=== PATIENT | male | born 1985 | race Caucasian/White ===

== ENCOUNTER 2017-03-04 22:49 | Emergency (ER) | payer MEDICAID ==
[2017-03-04] MEDS ORDERED: METOCLOPRAMIDE 10 MG/2 ML VIAL IVP ONE (23:02)
[2017-03-04] MEDS ORDERED: NS 1,000 ML IV ONE (23:02)
[2017-03-04] MEDS ORDERED: DEXAMETHASONE 10 MG/ML VIAL IVP ONE (23:02)
[2017-03-04] MEDS ORDERED: KETOROLAC 30 MG/1 ML SDV IVP ONE (23:02)
--- NOTE | 2017-03-04 23:05 | EDPHY ---
H & P Time Seen by Provider: 03/04/17 22:57 HPI/ROS: CHIEF COMPLAINT: Headache HISTORY OF PRESENT ILLNESS: The patient is a 31-year-old homeless man with history of methamphetamine abuse who comes to the emergency department by ambulance complaining of headache. He states that it began about 1 hour ago. It was gradual in onset. He states that he has migraines every so often but this seems to be worse than his typical migraine. He denies any trauma. He denies fever. He has been nauseous but not vomited. No Vision changes. No hearing changes no focal weakness numbness or deficits. He denies any recent alcohol abuse but does state that he had methamphetamine this afternoon. He was given fentanyl and Zofran by EMS. REVIEW OF SYSTEMS: Constitutional: denies: chills, fever, recent illness, recent injury EENTM: denies: blurred vision, double vision, nose congestion Respiratory: denies: cough, shortness of breath Cardiac: denies: chest pain, irregular heart rate, lightheadedness, palpitations Gastrointestinal/Abdominal: denies: abdominal pain, diarrhea, nausea, vomiting, blood streaked stools Genitourinary: denies: dysuria, frequency, hematuria, pain Musculoskeletal: denies: joint pain, muscle pain Skin: denies: lesions, rash, jaundice, bruising Neurological: See HPI denies: numbness, paresthesia, tingling, dizziness, weakness Hematologic/Lymphatic: denies: blood clots, easy bleeding, easy bruising Immunologic/allergic: denies: HIV/AIDS, transplant EXAM: GENERAL: Slightly drowsy, well-nourished and in no acute distress. HEAD: Atraumatic, normocephalic. EYES: Pupils equal round and reactive to light, extraocular movements intact, sclera anicteric, conjunctiva are normal. ENT: TMs normal, nares patent, oropharynx clear without exudates. Moist mucous membranes. NECK: Normal range of motion, supple without lymphadenopathy or JVD. LUNGS: Breath sounds clear to auscultation bilaterally and equal. No wheezes rales or rhonchi. HEART: Regular rate and rhythm without murmurs, rubs or gallops. ABDOMEN: Soft, nontender, normoactive bowel sounds. No guarding, no rebound. No masses appreciated. BACK: No CVA tenderness, no spinal tenderness, step-offs or deformities EXTREMITIES: Normal range of motion, no pitting or edema. No clubbing or cyanosis. NEUROLOGICAL: Cranial nerves II through XII grossly intact. Normal speech, normal gait. 5/5 strength, normal movement in all extremities, normal sensation PSYCH: Normal mood, normal affect. SKIN: Warm, dry, normal turgor, no visible rashes or lesions. Source: Patient Exam Limitations: No limitations - Medical/Surgical History Hx Asthma: No Hx Chronic Respiratory Disease: No Hx Diabetes: No Hx Cardiac Disease: No Hx Renal Disease: No Hx Cirrhosis: No Hx Alcoholism: No Hx HIV/AIDS: No Hx Splenectomy or Spleen Trauma: No Other PMH: ADHD, HEP C - Family History Significant Family History: No pertinent family hx - Social History Smoking Status: Current every day smoker Alcohol Use: Occasionally Drug Use: Other Constitutional: Initial Vital Signs Temperature (C) 36.7 C 03/04/17 23:10 Heart Rate 97 03/04/17 23:10 Respiratory Rate 16 03/04/17 23:10 Blood Pressure 151/91 H 03/04/17 23:10 O2 Sat (%) 94 03/04/17 23:10 O2 Delivery Mode Room Air Allergies/Adverse Reactions: No Known Allergies Allergy (Verified 03/04/17 23:09) Home Medications: Medication Instructions Recorded NK [No Known Home Meds] 03/22/15 Medical Decision Making ED Course/Re-evaluation: 12:00 p[address]. we discussed the CT results. The patient is feeling better. He does not wish to have further testing . He is ready to go home. Normal neuro exam. Differential Diagnosis: Partial list of the Differential diagnosis considered include but were not limited to; migraine, substance abuse, withdrawal, tension headache, right no and although unlikely based on the history and physical exam, I also considered trauma infection,. I discussed these differential diagnoses and the plan with the patient as well as the usual and expected course. The patient understands that the diagnosis is provisional and that in medicine we are not always correct and that further workup is often warranted. Usual and customary warnings were given. All of the patient's questions were answered. The patient was instructed to return to the emergency department should the symptoms at all worsen or return, otherwise to followup with the physician as we discussed. - Data Points Laboratory Results: Laboratory Results 03/04/17 23:40 03/04/17 23:40 Medications Given: Discontinued Medications Dexamethasone (Decadron Injection) 10 mg IVP EDNOW ONE Stop: 03/04/17 23:03 Last Admin: 03/04/17 23:16 Dose: 10 mg Sodium Chloride (Ns) 1,000 mls @ 0 mls/hr IV ONCE ONE; Wide Open PRN Reason: Protocol Stop: 03/04/17 23:03 Last Admin: 03/04/17 23:14 Dose: 1,000 mls Ketorolac Tromethamine (Toradol) 30 mg IVP EDNOW ONE Stop: 03/04/17 23:03 Last Admin: 03/04/17 23:15 Dose: 30 mg Metoclopramide HCl (Reglan Injection) 10 mg IVP EDNOW ONE Stop: 03/04/17 23:03 Last Admin: 03/04/17 23:18 Dose: 10 mg Departure - Departure Disposition: Home, Routine, Self-Care Clinical Impression: Headache Qualifiers: Headache type: unspecified Headache chronicity pattern: acute headache Intractability: not intractable Qualified Code(s): R51 - Headache Condition: Fair Instructions: Acute Headache (ED) Referrals: Patient,NotPresent [Unknown] - As per Instructions [facility],. [Clinic] - As per Instructions
[2017-03-04 23:19] VITALS: O2SAT 94
[2017-03-04 23:48] LABS: % IMMATURE GRANULYOCYTES 0.6 % (0.0-1.1); ABSOLUTE IMMATURE GRANULOCYTES 0.03 10^3/uL (0.00-0.10); ADD DIFF? NO; ADD MORPH? NO; ADD SCAN? NO; ATYPICAL LYMPHOCYTE FLAG 0 (0-99); FRAGMENT RBC FLAG 0 (0-99); HEMATOCRIT 44.8 % (40.0-51.0); HEMOGLOBIN 15.1 g/dL (13.7-17.5); LEFT SHIFT FLG 50 (0-99); LIPEMIA HEMOLYSIS FLAG 80 (0-99); MEAN CELL HEMOGLOBIN 31.3 pg (27.9-34.1); MEAN CELL HEMOGLOBIN CONCENTR. 33.7 g/dL (32.4-36.7); MEAN CELL VOLUME 92.9 fL (81.5-99.8); MEAN PLATELET VOLUME 11.4 fL (8.7-11.7); PLATELET CLUMPS FLAG 10 (0-99); PLATELET COUNT 147 10^3/uL (150-400); RED BLOOD CELL COUNT 4.82 10^6/uL (4.40-6.38); RED CELL DISTRIBUTION WIDTH 12.2 % (11.5-15.2)
[2017-03-05 00:06] LABS: ANION GAP 7 mEq/L (8-16); CALCIUM 8.3 mg/dL (8.5-10.4); CARBON DIOXIDE 23 mEq/l (22-31); CHLORIDE 107 mEq/L (97-110); CREATININE 0.6 mg/dL (0.7-1.3); GLOMERULAR FILTRATION RATE > 60; GLUCOSE 99 mg/dL (70-100); POTASSIUM 3.4 mEq/L (3.5-5.2); SODIUM 137 mEq/L (134-144)
[2017-03-05 00:17] VITALS: BP 128/85; PULSE 105; RESP 20; TEMP 98.4
== END 2017-03-05 00:17 | disposition home or self-care (01) ==
LOC: EDUNIT#
DX: R51 Headache (principal); E86.9 Volume depletion, unspecified; F17.200 Nicotine dependence, unspecified, uncomplicated
CPT/HCPCS: 96374; J1100; J1885; J2765

== ENCOUNTER 2017-06-21 17:03 | Emergency (ER) | payer MEDICAID ==
--- NOTE | 2017-06-21 17:33 | EDPHY ---
H & P - Medical/Surgical History Hx Asthma: No Hx Chronic Respiratory Disease: No Hx Diabetes: No Hx Cardiac Disease: No Hx Renal Disease: No Hx Cirrhosis: No Hx Alcoholism: No Hx HIV/AIDS: No Hx Splenectomy or Spleen Trauma: No Other PMH: ADHD, HEP C - Social History Smoking Status: Current every day smoker HPI/ROS: Chief complaint: Suicidal ideation, on mental health hold History of present illness: This is a 31-year-old male brought to the emergency department by police to have placed him on a mental health hold. Patient reports multiple stressors in life, he is very frustrated that he cannot deal with. He has had thoughts killing himself. He attempted to walk into traffic this evening but called 911 1st. Does have a history of underlying psychiatric disease. He has been in the hospital multiple times but is been a number of years since his last visit. States he normally takes psychiatric medications including Wellbutrin and Seroquel but has not been taking them recently is he is abusing methamphetamine. He denies homicidal ideation. He denies illness or injury. Review of systems: A 10 point review of systems was obtained and other than described above was negative (Filiberto Pearson) - Physical Exam Exam: General Appearance: Alert, nontoxic. Eyes: Pupils equal and round no pallor or injection. ENT, Mouth: Mucous membranes moist. Respiratory: There are no retractions, lungs are clear to auscultation. Cardiovascular: Regular rate and rhythm. Gastrointestinal: Abdomen is soft and non tender, no masses, bowel sounds normal. Neurological: Alert and oriented x4. Cranial nerves 2-12 grossly intact. Strength and sensation intact and symmetrical. Skin: Warm and dry, no rashes. Musculoskeletal: Neck is supple non tender. Extremities are symmetrical, full range of motion. Psychiatric: Patient converses easily. Appears mildly frustrated. (Filiberto eParson) Constitutional: Initial Vital Signs Temperature (C) 36.9 C 06/21/17 17:05 Heart Rate 88 06/21/17 17:05 Respiratory Rate 18 06/21/17 17:05 Blood Pressure 152/111 H 06/21/17 17:05 O2 Sat (%) 99 06/21/17 17:05 O2 Delivery Mode Room Air Allergies/Adverse Reactions: No Known Allergies Allergy (Verified 03/04/17 23:09) Home Medications: Medication Instructions Recorded NK [No Known Home Meds] 03/22/15 Medical Decision Making ED Course/Re-evaluation: The patient was evaluated and managed by the physician's medical assistant supervisor. My cosignature indicates that I reviewed the chart and I agree with the findings and plan of care as documented. I am the secondary supervising physician. ( Gavi Rueda) Patient seen under the supervision of my secondary supervising physician Dr. Gavi Rueda. Presents to the emergency department on a mental health hold for suicidal ideation. He is medically evaluated and cleared for psychiatric evaluation. This is pending at time of dictation. Care of patient turned over to my attending physician Dr. Susy Guerra at end of shift. (Filiberto Pearson) 10:50 p.m.- Patient was evaluated by mental health worker. He has a history of bipolar disorder with psychosis and has been off of his meds for several months now. He is not able to contract for safety. They will begin to look for and ATU for him. 6:00 a.m.- The patient has remained stable throughout my shift, mostly sleeping. He is still awaiting placement. The case will be signed out at 7:00 a.m. to the oncoming doctor, Dr. Patel. (Susy Guerra) Other Provider: [id number]: Patient has been accepted for inpatient treatment at the [facility]. Transport arranged. (Linda Patel) - Data Points Laboratory Results: Laboratory Results 06/21/17 18:30 06/21/17 18:30 Departure - Departure Disposition: Other Psych, Not [place] Clinical Impression: Suicidal ideation Condition: Good Referrals: NONE *PRIMARY CARE P,. [Primary Care Provider] - As per Instructions
[2017-06-21 18:39] LABS: PLATELET COUNT 268 10^3/uL (150-400)
[2017-06-22 12:06] VITALS: BP 135/92; PULSE 99; RESP 18; TEMP 98.4; O2SAT 98
== END 2017-06-22 12:06 ==
DX: R45.851 Suicidal ideations (principal); F17.200 Nicotine dependence, unspecified, uncomplicated
CPT/HCPCS: 80305; G0480

== ENCOUNTER 2017-07-04 01:50 | Emergency (ER) | payer MEDICAID ==
--- NOTE | 2017-07-04 01:57 | EDPHY ---
H & P HPI/ROS: HPI CHIEF COMPLAINT: Nausea and vomiting HISTORY OF PRESENT ILLNESS: This patient very pleasant 31-year-old male, he is homeless, history of mental illness including bipolar disorder, additionally history of polysubstance abuse, states he did methamphetamine approximately 12- 24 hours ago. He presents emergency room by mouth nausea vomiting. Additionally reports that there is something his abdomen. He states located epigastric region. Nontender palpation. He thinks there something stuck care. He denies ingestion of foreign body. Denies significant pain. Past Medical History: Bipolar disorder, schizophrenia, polysubstance abuse including methamphetamine Past Surgical History: No recent surgery Social History: Recent methamphetamine abuse Family History: Noncontributory ROS REVIEW OF SYSTEMS: A comprehensive 10 point review of systems is otherwise negative aside from elements mentioned in the history of present illness. Exam Constitutional appears well nontoxic, appears dry, triage nursing summary reviewed, vital signs reviewed, awake/alert. Eyes normal conjunctivae and sclera, EOMI, PERRLA. HENT normal inspection, atraumatic, dry mucus membranes, no epistaxis, neck supple/ no meningismus, no raccoon eyes. Respiratory clear to auscultation bilaterally, normal breath sounds, no respiratory distress, no wheezing. Cardiovascular rate normal, regular rhythm, no murmur, no edema, distal pulses normal. Gastrointestinal soft, non-tender, no rebound, no guarding, normal bowel sounds, no distension, no pulsatile mass. Genitourinary no CVA tenderness. Musculoskeletal no midline vertebral tenderness, full range of motion, no calf swelling, no tenderness of extremities, no meningismus, good pulses, neurovascularly intact. Skin pink, warm, & dry, no rash, skin atraumatic. Neurologic awake, alert and oriented x 3, AAOx3, moves all 4 extremities equally, motor intact, sensory intact, CN II-XII intact, normal cerebellar, normal vision, normal speech. Psychiatric normal mood/affect. Heme/Lymph/Immune no lymphadenopathy. Differential Diagnosis: Includes but is not limited to in a particular order acute nausea vomiting, acute dehydration, electrolyte disturbance, foreign body ingestion, esophagitis, peptic ulcer disease, duodenitis, bowel obstruction Medical Decision Making: Plan for this patient IV established with IV fluid bolus, 1 L normal saline, IV Zofran for nausea, check chest x-ray, KUB, check electrolytes, CBC and re-evaluate. Re-evaluation: ED x-ray two view; negative for foreign body. The x-ray KUB: Negative foreign body. 0253: I did re-evaluate this patient this time is resting comfortably his abdomen remained soft nontender. There is no guarding or peritoneal signs. His x-ray does not show foreign body. His blood work has been reviewed. He does have a mild leukocytosis of 18,000 is H/H is concentrated consistent with acute dehydration. Patient received 4 mg IV Zofran 1 L normal saline is feeling much better. He has not any vomiting in fact he p.o. challenge well. I have ordered him a 2nd L fluid for hydration he does appear dehydrated on exam. After 2nd L is done I will allow her to be discharged from the emergency room we discussed return precautions. Abdomen is soft nontender specifically is no right lower quadrant pain or significant epigastric pain. Additionally recommend he stays well hydrated refrain from doing drugs. Additionally he understands return emergency room if he has worsening abdominal pain fever vomiting. Source: Patient - Medical/Surgical History Hx Asthma: No Hx Chronic Respiratory Disease: No Hx Diabetes: No Hx Cardiac Disease: No Hx Renal Disease: No Hx Cirrhosis: No Hx Alcoholism: No Hx HIV/AIDS: No Hx Splenectomy or Spleen Trauma: No Other PMH: ADHD, HEP C - Social History Smoking Status: Current every day smoker Constitutional: Initial Vital Signs Temperature (C) 36.7 C 07/04/17 01:55 Heart Rate 82 07/04/17 01:55 Respiratory Rate 16 07/04/17 01:55 Blood Pressure 130/86 H 07/04/17 01:55 O2 Sat (%) 99 07/04/17 01:55 O2 Delivery Mode Room Air Allergies/Adverse Reactions: No Known Allergies Allergy (Verified 03/04/17 23:09) Home Medications: Medication Instructions Recorded Effexor 07/04/17 GABAPENTIN 07/04/17 Seroquel 07/04/17 Medical Decision Making - Data Points Laboratory Results: Laboratory Results 07/04/17 01:58 07/04/17 01:58 07/04/17 07/04/17 01:58 01:58 WBC 18.00 10^3/uL H 10^3/uL (3.80-9.50) RBC 6.04 10^6/uL 10^6/uL (4.40-6.38) Hgb 18.5 g/dL H g/dL (13.7-17.5) Hct 53.1 % H % (40.0-51.0) MCV 87.9 fL fL (81.5-99.8) MCH 30.6 pg pg (27.9-34.1) MCHC 34.8 g/dL g/dL (32.4-36.7) RDW 12.5 % % (11.5-15.2) Plt Count 229 10^3/uL 10^3/uL (150-400) MPV 12.3 fL H fL (8.7-11.7) Neut % (Auto) 91.6 % H % (39.3-74.2) Lymph % (Auto) 3.8 % L % (15.0-45.0) [place] % (Auto) 3.6 % L % (4.5-13.0) Eos % (Auto) 0.3 % L % (0.6-7.6) Baso % (Auto) 0.3 % % (0.3-1.7) Nucleat RBC Rel Count 0.0 % % (0.0-0.2) Absolute Neuts (auto) 16.48 10^3/uL H 10^3/uL (1.70-6.50) Absolute Lymphs (auto) 0.69 10^3/uL L 10^3/uL (1.00-3.00) Absolute Monos (auto) 0.64 10^3/uL 10^3/uL (0.30-0.80) Absolute Eos (auto) 0.05 10^3/uL 10^3/uL (0.03-0.40) Absolute Basos (auto) 0.06 10^3/uL 10^3/uL (0.02-0.10) Absolute Nucleated RBC 0.00 10^3/uL 10^3/uL (0-0.01) Immature Gran % 0.4 % % (0.0-1.1) Immature Gran # 0.08 10^3/uL 10^3/uL (0.00-0.10) Sodium 146 mEq/L H mEq/L (134-144) Potassium 4.4 mEq/L mEq/L (3.5-5.2) Chloride 103 mEq/L mEq/L (97-110) Carbon Dioxide 25 mEq/l mEq/l (22-31) Anion Gap 18 mEq/L H mEq/L (8-16) BUN 23 mg/dL mg/dL (7-23) Creatinine 0.8 mg/dL mg/dL (0.7-1.3) Estimated GFR > 60 Glucose 125 mg/dL H mg/dL (70-100) Calcium 10.0 mg/dL mg/dL (8.5-10.4) Total Bilirubin 1.4 mg/dL mg/dL (0.1-1.4) Conjugated Bilirubin 0.3 mg/dL mg/dL (0.0-0.5) Unconjugated Bilirubin 1.1 mg/dL mg/dL (0.0-1.1) AST 39 IU/L IU/L (17-59) ALT 97 IU/L H IU/L (21-72) Alkaline Phosphatase 88 IU/L IU/L (38-126) Total Protein 8.4 g/dL H g/dL (6.3-8.2) Albumin 4.7 g/dL g/dL (3.5-5.0) Lipase 95 IU/L IU/L (23-300) Medications Given: Discontinued Medications Acetaminophen (Tylenol) 1,000 mg PO EDNOW ONE Stop: 07/04/17 02:03 Last Admin: 07/04/17 02:14 Dose: 1,000 mg Sodium Chloride (Ns) 1,000 mls @ 0 mls/hr IV EDNOW ONE; Wide Open PRN Reason: Protocol Stop: 07/04/17 02:03 Last Admin: 07/04/17 02:14 Dose: 1,000 mls Ondansetron HCl (Zofran) 4 mg IVP EDNOW ONE Stop: 07/04/17 02:03 Last Admin: 07/04/17 02:15 Dose: 4 mg Departure - Departure Disposition: Home, Routine, Self-Care Clinical Impression: Dehydration Nausea and vomiting Qualifiers: Vomiting type: unspecified Vomiting Intractability: non-intractable Qualified Code(s): R11.2 - Nausea with vomiting, unspecified Condition: Good Instructions: Acute Nausea and Vomiting (ED), Dehydration (ED) Additional Instructions: 1. Return emergency room if you have any worsening symptoms includes abdominal pain, fever, vomiting Referrals: NONE *PRIMARY CARE P,. [Primary Care Provider] - As per Instructions
[2017-07-04] MEDS ORDERED: ONDANSETRON 4 MG/2 ML VIAL IVP ONE (02:02)
[2017-07-04] MEDS ORDERED: NS 1,000 ML IV ONE ×2 (02:02→02:58)
[2017-07-04] MEDS ORDERED: ACETAMINOPHEN 500 MG TAB PO ONE (02:02)
[2017-07-04 02:05] VITALS: RESP 16
[2017-07-04 02:06] LABS: PLATELET COUNT 229 10^3/uL (150-400)
[2017-07-04] MEDS ORDERED: IBUPROFEN 800 MG TAB PO ONE (03:47)
[2017-07-04] MEDS ORDERED: PROMETHAZINE HCL 25 MG TAB PO ONE (04:02)
[2017-07-04 04:13] VITALS: BP 131/66; PULSE 94; TEMP 97.9; O2SAT 94
== END 2017-07-04 04:10 | disposition home or self-care (01) ==
LOC: EDUNIT#
DX: E86.0 Dehydration (principal); E86.9 Volume depletion, unspecified; F17.200 Nicotine dependence, unspecified, uncomplicated
CPT/HCPCS: 96374; J2405

== ENCOUNTER 2017-10-01 10:57 | Emergency (ER) | payer MEDICAID ==
--- NOTE | 2017-10-01 11:00 | EDPHY ---
Addendum entered and electronically signed by Delphine Myers MD 10/04/17 23:15 : Signed over to Dr. Amezcua at shift change. Dispo pending. Addendum entered and electronically signed by Delphine Myers MD 10/03/17 21:23 : 9pm: signed over to Dr. Rueda at shift change. Dispo pending. Original Note: H & P - Medical/Surgical History Hx Asthma: No Hx Chronic Respiratory Disease: No Hx Diabetes: No Hx Cardiac Disease: No Hx Renal Disease: No Hx Cirrhosis: No Hx Alcoholism: No Hx HIV/AIDS: No Hx Splenectomy or Spleen Trauma: No Other PMH: ADHD, HEP C - Social History Smoking Status: Current every day smoker Time Seen by Provider: 10/01/17 10:57 HPI/ROS: CHIEF COMPLAINT: "I'm tired of this bullshit" HISTORY OF PRESENT ILLNESS: 31-year-old male history of homelessness, bipolar disorder, polysubstance abuse, arrives via police on an M1 hold after he was found wandering in traffic intentionally trying to get hit by vehicle, states that this was a suicide attempt because, "I'm tired of this bullshit". Last used methamphetamine 5 days ago. Has no complaints of pain or discomfort. There was no trauma, he was not hit by any vehicles. No fall. Denies acute alcohol use. Denies hallucination. REVIEW OF SYSTEMS: A ten point review of systems was performed and is negative with the exception of the items mentioned in the HPI PAST MEDICAL & SURGICAL HISTORY: Bipolar disorder SOCIAL HISTORY: Polysubstance abuse, amphetamine abuse PHYSICAL EXAM (Prior to examination, patient consented to physical exam, hands were washed and my usual and customary physical exam procedures followed) 1) GENERAL: poorly kept, foul smelling, dirty, alert and oriented. Appears to be in no acute distress. 2) HEAD: Normocephalic, atraumatic 3) HEENT: Pupils equal, round, reactive to light bilaterally. Sclera anicteric. 4) NECK: Full range of motion, no meningeal signs. 5) LUNGS: Clear auscultation bilaterally, no wheezes, no rhonchi, no retractions. 6) HEART: Regular rate and rhythm, no murmur, no heave, no gallop. 7) ABDOMEN: No guarding, no rebound, no focal tenderness 8) MUSCULOSKELETAL: Moving all extremities, no focal areas of tenderness, no obvious trauma. No peripheral edema or discoloration. 9) BACK: No visual or palpable abnormality. 10) SKIN: No rash, no petechiae. 11) Psychiatric: Patient is oriented X 3, agitated, will intermittently raised his voice at me DIFFERENTIAL DIAGNOSIS: In no particular include but limited to suicidal ideation, homicidal ideation, depression, meredith, psychosis (Leticia Raman Bernadette) Constitutional: Initial Vital Signs Temperature (C) 36.7 C 10/01/17 11:00 Heart Rate 57 L 10/01/17 11:00 Respiratory Rate 16 10/01/17 11:00 Blood Pressure 134/88 H 10/01/17 11:00 O2 Sat (%) 96 10/01/17 11:00 O2 Delivery Mode Room Air Allergies/Adverse Reactions: No Known Allergies Allergy (Verified 03/04/17 23:09) Home Medications: Medication Instructions Recorded Gabapentin [Neurontin 300 MG (*)] 900 mg PO BID 10/04/17 QUEtiapine FUMARATE [Seroquel 300 mg PO HS 10/04/17 300mg (*)] Venlafaxine Xr [Effexor Xr] 150 mg PO DAILY 10/04/17 busPIRone [Buspar (*)] 30 mg PO BID 10/04/17 Medical Decision Making ED Course/Re-evaluation: 10:59 a.m.: Greeted upon arrival. I have reviewed old medical records. Patient is currently on M1 hold. Will obtain diagnostic studies and re- evaluate. Care of patient under supervision of secondary supervising physician Dr Guzman with whom I discussed case. 330 p.m.: Mental health web search evaluator informs me that patient cannot be evaluated until 11:40 p.m. this evening secondary to positive methamphetamine use. Patient re-evaluated at this time. He is sleeping , calm 5:00 p.m.: Care turned over to Dr. Cuong Schafer. (Leticia Raman Bernadette) 1:00 p.m.-I assumed care of this patient. He has a history of depression and mental health is re-evaluating him. 3:15pm-seen by mental health and the plan is to place him in an ATU. (Delphine Myers) 1500: Patient is signed out to me at change of shift by Dr. Ortega. Patient is awaiting evaluation by Psychiatric Services. 2124: The patient is signed out to me at change of shift by Dr. Delphine Myers. Patient is awaiting evaluation placement. (Gavi Rueda) Patient's care was signed over to me by at 7:00 a.m.. Re-evaluation by me at 7:40 a.m.. Patient is receiving Seroquel and BuSpar. Mental health is looking for placement. They are going to come back this morning for re- evaluation Patient has remained stable on my shift. (Lito Chapman) Other Provider: I assumed care of the patient at 5pm. He is awaiting an psychiatric evaluation which has been delayed secondary to his methamphetamine use. The patient will be turned over to Dr. Guerra at 11pm. (Lance Schafer) 2:51 a.m.- The patient was seen by the mental health worker. His urine toxicology was positive for methamphetamine and there is strong suspicion that this is contributing to most of his presentation tonight. He was fairly uncooperative with his history and exam. The mental health worker would like to reassess him in the morning. 5:50 a.m.- The patient has been stable during my shift. He is awaiting reassessment by the mental health team in the morning. At 7:00 a.m., I anticipate the case will be signed out to the oncoming provider Dr. Ortega. (Susy Guerra) Care assumed at 7:00 a.m. With plan for repeat evaluation, history of bipolar disorder and methamphetamine ingestion. 1500: signed out to Moh[facility], plan to admit for SI. (Jeff Ortega) Dr. Myers at 3:00 p.m. (Lito Chapman) 2300 care assumed by me from Dr. Rueda pending placement. 07 patient signed out to Dr. Guzman pending placement. No issues during my care this patient overnight. 10/03/18 2300 care re-assumed by me pending placement. 10/04/18 0700 patient signed out to Dr. Chapman pending placement. No issues during my care this patient overnight. 10/04/18 2300 care re-assumed by me pending placement. 10/05/17 0600 patient has been accepted at [facility] by Dr. Orellana. I have completed the EMTALA ([place] Amezcua) - Data Points Laboratory Results: Laboratory Results 10/01/17 11:40 10/01/17 11:40 10/04/17 19:23 Urine Opiates Screen NEGATIVE ng/mL ng/mL (NEGATIVE) Urine Barbiturates NEGATIVE ng/mL ng/mL (NEGATIVE) Ur Phencyclidine Scrn NEGATIVE ng/mL ng/mL (NEGATIVE) Ur Amphetamines Screen NEGATIVE ng/mL ng/mL (NEGATIVE) U Benzodiazepines Scrn NEGATIVE ng/mL ng/mL (NEGATIVE) Urine Cocaine Screen NEGATIVE ng/mL ng/mL (NEGATIVE) U Marijuana (THC) Screen 76 ng/mL ng/mL (NEGATIVE) Medications Given: Discontinued Medications Buspirone HCl (Buspar) 15 mg PO EDNOW ONE Stop: 10/04/17 08:02 Last Admin: 10/04/17 10:29 Dose: 15 mg Buspirone HCl (Buspar) 30 mg PO EDNOW ONE Stop: 10/04/17 20:11 Last Admin: 10/04/17 20:32 Dose: 30 mg Gabapentin (Neurontin) 900 mg PO EDNOW ONE Stop: 10/01/17 22:52 Last Admin: 10/01/17 23:07 Dose: 900 mg Gabapentin (Neurontin) 900 mg PO EDNOW ONE Stop: 10/03/17 19:48 Last Admin: 10/03/17 20:17 Dose: 900 mg Gabapentin (Neurontin) 900 mg PO EDNOW ONE Stop: 10/04/17 10:31 Last Admin: 10/04/17 11:21 Dose: 900 mg Gabapentin (Neurontin) 900 mg PO EDNOW ONE Stop: 10/04/17 20:13 Last Admin: 10/04/17 20:31 Dose: 900 mg Quetiapine Fumarate (Seroquel) 200 mg PO EDNOW ONE Stop: 10/01/17 22:52 Last Admin: 10/01/17 23:08 Dose: 200 mg Quetiapine Fumarate (Seroquel) 100 mg PO EDNOW ONE Stop: 10/03/17 20:01 Last Admin: 10/03/17 20:17 Dose: 100 mg Quetiapine Fumarate (Seroquel) 200 mg PO EDNOW ONE Stop: 10/03/17 20:19 Last Admin: 10/03/17 20:19 Dose: 200 mg Quetiapine Fumarate (Seroquel) 300 mg PO ONCE ONE Stop: 10/04/17 08:02 Last Admin: 10/04/17 10:29 Dose: 300 mg Quetiapine Fumarate (Seroquel) 300 mg PO ONCE ONE Stop: 10/04/17 20:08 Last Admin: 10/04/17 20:32 Dose: 300 mg Departure - Departure Disposition: Other Psych, Not [facility] Clinical Impression: Methamphetamine abuse, Bipolar disorder, Suicidal ideation Condition: Good Instructions: Bipolar Disorder (ED), Methamphetamine Abuse (ED) Referrals: [facility],. [Clinic] - As per Instructions
[2017-10-01 12:05] LABS: PLATELET COUNT 197 10^3/uL (150-400)
[2017-10-01] MEDS ORDERED: QUEtiapine FUMARATE 200 MG TAB PO ONE (22:51)
[2017-10-01] MEDS ORDERED: GABAPENTIN 300 MG CAP PO ONE (22:51)
[2017-10-03] MEDS ORDERED: GABAPENTIN 300 MG CAP PO ONE (19:47)
[2017-10-03] MEDS ORDERED: QUEtiapine FUMARATE 50 MG TAB PO ONE ×2 (19:48→20:18)
[2017-10-03] MEDS ORDERED: QUEtiapine FUMARATE 200 MG TAB ONE (19:50)
[2017-10-03] MEDS ORDERED: QUEtiapine FUMARATE 100 MG TAB PO ONE (20:00)
[2017-10-04] MEDS ORDERED: QUEtiapine FUMARATE 300 MG TAB PO ONE ×2 (08:01→20:07)
[2017-10-04] MEDS ORDERED: busPIRone 15 MG TAB PO ONE ×2 (08:01→20:10)
[2017-10-04] MEDS ORDERED: GABAPENTIN 300 MG CAP PO ONE ×2 (10:30→20:12)
[2017-10-04 10:31] VITALS: RESP 16
[2017-10-04] MEDS ORDERED: busPIRone 10 MG TAB ONE (20:23)
[2017-10-04] MEDS ORDERED: QUEtiapine FUMARATE 200 MG TAB ONE (20:23)
[2017-10-05 07:50] VITALS: BP 110/64; PULSE 78; TEMP 98.8; O2SAT 98
[2017-10-05] MEDS ORDERED: GABAPENTIN 300 MG CAP PO SCH (09:00)
== END 2017-10-05 07:47 ==
DX: R45.851 Suicidal ideations (principal); F31.9 Bipolar disorder, unspecified; F15.10 Other stimulant abuse, uncomplicated; F17.200 Nicotine dependence, unspecified, uncomplicated
CPT/HCPCS: 80305; 80307; G0480

== ENCOUNTER 2018-11-29 07:35 | Observation (INO) | payer MEDICAID ==
[2018-11-29] MEDS ORDERED: NS 1,000 ML IV ONE ×2 (08:03→10:09)
[2018-11-29] MEDS ORDERED: KETOROLAC 30 MG/1 ML SDV IVP ONE (08:06)
[2018-11-29] MEDS ORDERED: ONDANSETRON 4 MG/2 ML VIAL IVP ONE ×2 (08:06→10:08)
--- NOTE | 2018-11-29 10:08 | EDPHY ---
H & P Stated Complaint: Pt c/o H/A and vomiting since 0, admits meth use, burning abd pn Time Seen by Provider: 11/29/18 07:37 HPI/ROS: CHIEF COMPLAINT: Headache, vomiting (with blood) HISTORY OF PRESENT ILLNESS: This is a 33-year-old male with a history of IV drug abuse who presents complaining of persistent headache (frontal across the top of his head) and persistent nausea vomiting. He thinks that he has seen blood in the vomitus. He describes burning mid epigastric and diffuse abdominal pain. He also has burning and a foreign body sensation in his throat. He tells me that he has vomited multiple times over the last 3-4 hours. REVIEW OF SYSTEMS: A ten system review of systems was performed and is negative with the exception of the items mentioned in the HPI. Past medical history: 1. IV drug abuse 2. Attention deficit hyperactivity disorder 3. Hepatitis-C Past surgical history: Denies Social history: Undomiciled. History of IV drug abuse with last meth use within the last 24 hr. Tobacco abuse. Denies use of alcohol. General Appearance: Alert. Vital signs reviewed. Blood pressure 141/78 at triage. Somewhat disheveled. Eyes: Pupils equal and round, no conjunctival injection, no discharge. Anicteric. ENT, Mouth: Mucous membranes are dry, no oropharyngeal erythema or edema. Neck: No lymphadenopathy, supple. Respiratory: Lungs are clear to auscultation; no wheezes, rales, or rhonchi. Cardiovascular: Regular rate and rhythm; no murmur, rub, or gallop. Gastrointestinal: Abdomen is soft with mild midepigastric tenderness, no guarding, no masses or organomegaly, bowel sounds normal. Skin: Warm and dry, no rashes on exposed skin, normal color. Back: Nontender to palpation over the thoracolumbar spine. No CVAT. Extremities: No lower extremity edema, no calf tenderness or swelling. Neurological: Alert and oriented. Moving all four extremities easily and equally. SHERRI. EOMI. Facial expressions symmetric. Psychiatric: Normal affect. - Personal History Current Tetanus/Diphtheria Vaccine: Unsure - Medical/Surgical History Hx Asthma: No Hx Chronic Respiratory Disease: No Hx Diabetes: No Hx Cardiac Disease: No Hx Renal Disease: No Hx Cirrhosis: No Hx Alcoholism: No Hx HIV/AIDS: No Hx Splenectomy or Spleen Trauma: No Other PMH: ADHD, HEP C, sub abuse - Social History Smoking Status: Current every day smoker Constitutional: Initial Vital Signs Temperature (C) 36.8 C 11/29/18 07:41 Heart Rate 61 11/29/18 07:41 Respiratory Rate 18 11/29/18 07:41 Blood Pressure 141/78 H 11/29/18 07:41 O2 Sat (%) 100 11/29/18 07:41 O2 Delivery Mode Room Air Allergies/Adverse Reactions: No Known Allergies Allergy (Verified 11/29/18 07:41) Home Medications: Medication Instructions Recorded NK [No Known Home Meds] 11/29/18 Medical Decision Making ED Course/Re-evaluation: Patient complaining of headache across the top of his head, persistent nausea and vomiting. He has been seen twice before with similar complaints. This morning he was initially given 4 mg IV Zofran, 1 L IV normal saline, 25 mg IV Benadryl, and 30 mg IV Toradol. He was re-evaluated at 9:45 a.m.. At that time he tells me that he still has nausea. The emesis cup next to him has fluid in it that is the color of tea, no coffee grounds. He tells me that this is his vomitus. He has not had witnessed vomiting. He also complains of continued headache. He is dissatisfied with the treatment thus far. He reports a foreign body/burning sensation in his throat at the level of the sternal notch and would like me to further evaluate that. I have suggested that this could be due to irritation secondary to vomiting but he does not agree with that evaluation. We talked about GERD and acid reflux. He does not think that he suffers from this problem. He also wants me to evaluate a right breast mass that has been present for an unclear amount of time. I did evaluate this mass. It is a nontender nonmobile mass without overlying warmth or erythema. I do not think it is an abscess or cellulitis. I have explained to him that this would not be further evaluated in the emergency department, but rather by a surgeon or primary care doctor. Again, he is not happy with that response on my part. Patient continued with headache. During his stay in the emergency department he was given Tylenol 1 g p.o. for headache--with no relief. He also received a 2nd dose of Zofran 4 mg IV, 2nd L of IV normal saline, 20 mg IV Pepcid, and ultimately 12.5 mg IV Phenergan. He continued to complain of persistent abdominal pain and nausea. He stated that he was having continued vomiting, although I did not see him vomit. He did have 2 emesis containers with what appears to be vomitus next to his bed. Blood work including CBC, chemistries, lipase, liver functions essentially normal. He tells me that he is not a heavy drinker or heavy pot smoker. He does not appear to have pancreatitis or cholecystitis. This appears to be a gastritis. In spite of my attempts, I have not been able to control his vomiting. I do not find evidence of a surgical problem. He is being admitted to the hospitalist service for further evaluation and treatment as needed. - Data Points Laboratory Results: Laboratory Results 11/29/18 08:19 11/29/18 08:19 11/29/18 11/29/18 11/29/18 08:19 08:19 08:19 WBC RBC Hgb Hct MCV MCH MCHC RDW Plt Count MPV Neut % (Auto) Lymph % (Auto) [place] % (Auto) Eos % (Auto) Baso % (Auto) Nucleat RBC Rel Count Absolute Neuts (auto) Absolute Lymphs (auto) Absolute Monos (auto) Absolute Eos (auto) Absolute Basos (auto) Absolute Nucleated RBC Immature Gran % Immature Gran # Sodium 139 mEq/L mEq/L (135-145) Potassium 3.8 mEq/L mEq/L (3.5-5.2) Chloride 106 mEq/L mEq/L (97-110) Carbon Dioxide 20 mEq/l L mEq/l (22-31) Anion Gap 13 mEq/L mEq/L (6-14) BUN 11 mg/dL mg/dL (7-23) Creatinine 0.6 mg/dL L mg/dL (0.7-1.3) Estimated GFR > 60 Glucose 117 mg/dL H mg/dL (70-100) Calcium 9.9 mg/dL mg/dL (8.5-10.4) Total Bilirubin 0.9 mg/dL mg/dL (0.1-1.4) Conjugated Bilirubin 0.2 mg/dL mg/dL (0.0-0.5) Unconjugated Bilirubin 0.7 mg/dL mg/dL (0.0-1.1) AST 24 IU/L IU/L (17-59) ALT 51 IU/L IU/L (21-72) Alkaline Phosphatase 59 IU/L IU/L (38-126) Total Protein 7.0 g/dL g/dL (6.3-8.2) Albumin 4.2 g/dL g/dL (3.5-5.0) Lipase 124 IU/L IU/L (23-300) H. pylori IgG Antibody NEGATIVE (NEG) Hep Bs Antigen Pending Hep Bs Antibody Pending Hep Bs Antibody, Quant Pending Hep B Core Total Ab Pending Hepatitis C Antibody Pending 11/29/18 08:19 WBC 11.70 10^3/uL H 10^3/uL (3.80-9.50) RBC 5.88 10^6/uL 10^6/uL (4.40-6.38) Hgb 17.3 g/dL g/dL (13.7-17.5) Hct 50.3 % % (40.0-51.0) MCV 85.5 fL fL (81.5-99.8) MCH 29.4 pg pg (27.9-34.1) MCHC 34.4 g/dL g/dL (32.4-36.7) RDW 13.1 % % (11.5-15.2) Plt Count 241 10^3/uL 10^3/uL (150-400) MPV 12.7 fL H fL (8.7-11.7) Neut % (Auto) 77.6 % H % (39.3-74.2) Lymph % (Auto) 16.2 % % (15.0-45.0) [place] % (Auto) 5.5 % % (4.5-13.0) Eos % (Auto) 0.1 % L % (0.6-7.6) Baso % (Auto) 0.3 % % (0.3-1.7) Nucleat RBC Rel Count 0.0 % % (0.0-0.2) Absolute Neuts (auto) 9.09 10^3/uL H 10^3/uL (1.70-6.50) Absolute Lymphs (auto) 1.90 10^3/uL 10^3/uL (1.00-3.00) Absolute Monos (auto) 0.64 10^3/uL 10^3/uL (0.30-0.80) Absolute Eos (auto) 0.01 10^3/uL L 10^3/uL (0.03-0.40) Absolute Basos (auto) 0.03 10^3/uL 10^3/uL (0.02-0.10) Absolute Nucleated RBC 0.00 10^3/uL 10^3/uL (0-0.01) Immature Gran % 0.3 % % (0.0-1.1) Immature Gran # 0.03 10^3/uL 10^3/uL (0.00-0.10) Sodium Potassium Chloride Carbon Dioxide Anion Gap BUN Creatinine Estimated GFR Glucose Calcium Total Bilirubin Conjugated Bilirubin Unconjugated Bilirubin AST ALT Alkaline Phosphatase Total Protein Albumin Lipase H. pylori IgG Antibody Hep Bs Antigen Hep Bs Antibody Hep Bs Antibody, Quant Hep B Core Total Ab Hepatitis C Antibody Medications Given: Discontinued Medications Acetaminophen (Tylenol) 1,000 mg PO EDNOW ONE Stop: 11/29/18 10:11 Last Admin: 11/29/18 10:15 Dose: 1,000 mg Diphenhydramine HCl (Benadryl Injection) 25 mg IVP EDNOW ONE Stop: 11/29/18 08:07 Last Admin: 11/29/18 08:46 Dose: 25 mg Sodium Chloride (Ns) 1,000 mls @ 0 mls/hr IV EDNOW ONE; Wide Open PRN Reason: Protocol Stop: 11/29/18 08:04 Last Admin: 11/29/18 08:42 Dose: 1,000 mls Sodium Chloride (Ns) 1,000 mls @ 0 mls/hr IV EDNOW ONE; Wide Open PRN Reason: Protocol Stop: 11/29/18 10:10 Last Admin: 11/29/18 10:15 Dose: 1,000 mls Famotidine/Sodium Chloride (Pepcid 20 Mg (Premix)) 50 mls @ 200 mls/hr IV EDNOW ONE Stop: 11/29/18 11:00 Last Admin: 11/29/18 10:51 Dose: 50 mls Ketorolac Tromethamine (Toradol) 30 mg IVP EDNOW ONE Stop: 11/29/18 08:07 Last Admin: 11/29/18 08:45 Dose: 30 mg Ondansetron HCl (Zofran) 4 mg IVP EDNOW ONE Stop: 11/29/18 08:07 Last Admin: 11/29/18 08:44 Dose: 4 mg Ondansetron HCl (Zofran) 4 mg IVP EDNOW ONE Stop: 11/29/18 10:09 Last Admin: 11/29/18 10:15 Dose: 4 mg Promethazine HCl (Phenergan) 12.5 mg IVP EDNOW ONE Stop: 11/29/18 12:39 Last Admin: 11/29/18 12:52 Dose: 12.5 mg Departure - Departure Disposition: [facility] Clinical Impression: Gastritis Qualifiers: Gastritis type: unspecified gastritis Chronicity: acute Gastritis bleeding: without bleeding Qualified Code(s): K29.00 - Acute gastritis without bleeding Vomiting Qualifiers: Vomiting type: unspecified Vomiting Intractability: intractable Nausea presence : with nausea Qualified Code(s): R11.2 - Nausea with vomiting, unspecified Condition: Fair
[2018-11-29] MEDS ORDERED: ACETAMINOPHEN 500 MG TAB PO ONE (10:10)
[2018-11-29 10:18] LABS: PLATELET COUNT 241 10^3/uL (150-400)
[2018-11-29] MEDS ORDERED: FAMOTIDINE 20 MG/NACL 50 ML IV ONE (10:46)
[2018-11-29] MEDS ORDERED: PROMETHAZINE HCL 25 MG/ML INJ IVP ONE (12:38)
[2018-11-29] MEDS ORDERED: ONDANSETRON 4 MG/2 ML VIAL IVP PRN (14:49)
[2018-11-29] MEDS ORDERED: PROMETHAZINE HCL 25 MG/ML INJ IVP PRN (14:49)
[2018-11-29] MEDS ORDERED: ONDANSETRON DISINTEGRATING 4 MG TAB PO PRN (14:49)
--- NOTE | 2018-11-29 14:57 | PDGENHP ---
History and Physical - Chief Complaint epigastric pain, N/V - History of Present Illness 33 yo homeless male with h/o IVDA presents to ED with epigastric abdominal pain , nausea and vomiting. Symptoms started today and he describes feeling burning and as if there is a lump in his stomach. He endorses blood in vomit previously , but the emesis in his basin here is non-bloody, no coffee grounds. Denies BRBPR or melena. No fevers/chills. [place] [address] Last use IV methamphetamine 1 day ago. Injects into his arms. Denies abscess or cellulitic changes. No CP, SOB or urinary symptoms. In the ED, he received IVF's and anti-emetics. He failed a po challenge with ongoing vomiting and is admitted for further management. History Information - Allergies/Home Medication List Allergies/Adverse Reactions: No Known Allergies Allergy (Verified 11/29/18 07:41) Home Medications: NK [No Known Home Meds] 11/29/18 [Last Taken Unknown] I have personally reviewed and updated: family history, medical history, social history, surgical history - Past Medical History Additional medical history: IVDA - Surgical History Reports: no pertinent surgical hx - Family History Positive for: non-pertinent - Social History Smoking Status: Current every day smoker Alcohol Use: None Drug Use: Marijuana, Other (IV methamphetamine) Review of Systems Review of Systems: ROS: 10pt was reviewed & negative except for what was stated in HPI & below Physical Exam Physical Exam: Temp Pulse Resp BP Pulse Ox 36.8 C 64 16 132/80 H 96 11/29/18 07:41 11/29/18 10:00 11/29/18 10:00 11/29/18 10:00 11/29/18 10:00 Constitutional: no apparent distress Eyes: PERRL Ears, Nose, Mouth, Throat: moist mucous membranes Cardiovascular: regular rate and rhythym, no murmur, rub, or gallop Respiratory: no respiratory distress, clear to auscultation Gastrointestinal: other (soft, +TTP epigastrium, no r/r/g, +BS) Skin: warm Musculoskeletal: full muscle strength Neurologic: AAOx3 Psychiatric: interacting appropriately Lab Data & Imaging Review 11/29/18 08:19 11/29/18 08:19 WBC 11.70 10^3/uL (3.80-9.50) H 11/29/18 08:19 RBC 5.88 10^6/uL (4.40-6.38) 11/29/18 08:19 Hgb 17.3 g/dL (13.7-17.5) 11/29/18 08:19 Hct 50.3 % (40.0-51.0) 11/29/18 08:19 MCV 85.5 fL (81.5-99.8) 11/29/18 08:19 MCH 29.4 pg (27.9-34.1) 11/29/18 08:19 MCHC 34.4 g/dL (32.4-36.7) 11/29/18 08:19 RDW 13.1 % (11.5-15.2) 11/29/18 08:19 Plt Count 241 10^3/uL (150-400) 11/29/18 08:19 MPV 12.7 fL (8.7-11.7) H 11/29/18 08:19 Neut % (Auto) 77.6 % (39.3-74.2) H 11/29/18 08:19 Lymph % (Auto) 16.2 % (15.0-45.0) 11/29/18 08:19 [place] % (Auto) 5.5 % (4.5-13.0) 11/29/18 08:19 Eos % (Auto) 0.1 % (0.6-7.6) L 11/29/18 08:19 Baso % (Auto) 0.3 % (0.3-1.7) 11/29/18 08:19 Nucleat RBC Rel Count 0.0 % (0.0-0.2) 11/29/18 08:19 Absolute Neuts (auto) 9.09 10^3/uL (1.70-6.50) H 11/29/18 08:19 Absolute Lymphs (auto) 1.90 10^3/uL (1.00-3.00) 11/29/18 08:19 Absolute Monos (auto) 0.64 10^3/uL (0.30-0.80) 11/29/18 08:19 Absolute Eos (auto) 0.01 10^3/uL (0.03-0.40) L 11/29/18 08:19 Absolute Basos (auto) 0.03 10^3/uL (0.02-0.10) 11/29/18 08:19 Absolute Nucleated RBC 0.00 10^3/uL (0-0.01) 11/29/18 08:19 Immature Gran % 0.3 % (0.0-1.1) 11/29/18 08:19 Immature Gran # 0.03 10^3/uL (0.00-0.10) 11/29/18 08:19 Sodium 139 mEq/L (135-145) 11/29/18 08:19 Potassium 3.8 mEq/L (3.5-5.2) 11/29/18 08:19 Chloride 106 mEq/L (97-110) 11/29/18 08:19 Carbon Dioxide 20 mEq/l (22-31) L 11/29/18 08:19 Anion Gap 13 mEq/L (6-14) 11/29/18 08:19 BUN 11 mg/dL (7-23) 11/29/18 08:19 Creatinine 0.6 mg/dL (0.7-1.3) L 11/29/18 08:19 Estimated GFR > 60 11/29/18 08:19 Glucose 117 mg/dL (70-100) H 11/29/18 08:19 Calcium 9.9 mg/dL (8.5-10.4) 11/29/18 08:19 Total Bilirubin 0.9 mg/dL (0.1-1.4) 11/29/18 08:19 Conjugated Bilirubin 0.2 mg/dL (0.0-0.5) 11/29/18 08:19 Unconjugated Bilirubin 0.7 mg/dL (0.0-1.1) 11/29/18 08:19 AST 24 IU/L (17-59) 11/29/18 08:19 ALT 51 IU/L (21-72) 11/29/18 08:19 Alkaline Phosphatase 59 IU/L (38-126) 11/29/18 08:19 Total Protein 7.0 g/dL (6.3-8.2) 11/29/18 08:19 Albumin 4.2 g/dL (3.5-5.0) 11/29/18 08:19 Lipase 124 IU/L (23-300) 11/29/18 08:19 Assessment & Plan Assessment: Epigastric abdominal pain with refractory N/V - DDx: gastritis, PUD or possibly viral. LFT's nl. No diarrhea. Exam reassuring. No signs of sepsis. -admit for supportive care, IVF's, anti-emetics -IV Pepcid as IV protonix in low supply -check H pylori Ab -consider GI consult for EGD if not improving IVDA - last used 1 day ago -check drug screen -send hepatitis serologies, HIV NAGMA - suspect starvation ketosis in setting of N/V -IVF's DVT PPLX - low risk Full code Dispo - obs
[2018-11-29] MEDS ORDERED: NS W/ 20 KCl/L 1,000 ML IV SCH (15:00)
[2018-11-29] MEDS ORDERED: FAMOTIDINE 20 MG in NS 100 ML IV ONE (21:00)
[2018-11-29] MEDS: ACETAMINOPHEN 325 MG TAB PO PRN (22:34)
[2018-11-30 03:59] LABS: HEPATITIS B CORE AB TOTAL NEGATIVE (NEGATIVE); HEPATITIS B SURFACE ANTIGEN NEGATIVE (NEGATIVE); HEPATITIS C ANTIBODY TOTAL REACTIVE (NEGATIVE)
[2018-11-30 05:29] LABS: PLATELET COUNT 210 10^3/uL (150-400)
[2018-11-30] MEDS: ACETAMINOPHEN 325 MG TAB PO PRN (10:54)
--- NOTE | 2018-11-30 13:13 | HOSPPROG ---
Hospitalist Progress Note Assessment/Plan: 33 yo homeless male with h/o IVDA presents to ED with epigastric abdominal pain , nausea and vomiting. First encounter, chart reviewed. *Epigastric abdominal pain with refractory N/V - likely gastritis -H pylori negative -used meth recently and likely caused some of the symptoms *IVDA - last used 2 days ago -HIV negative *right breast swelling -will get an ultrasound to evaluate, it 's painful around the nipple area *hepatitis C, should get an HCV RNA -is aware he has this, has a P[facility] *NAGMA - suspect starvation ketosis in setting of N/V -resolved *homelessness -says he prefers to live like this, is originally from [place] *plan: will order regular diet, will check an ultrasound and if stable; dc home Subjective: Calderon wants to eat, is worried about right breast swelling. Objective: Vital Signs Temp Pulse Resp BP Pulse Ox 36.5 C 72 14 133/71 H 92 11/30/18 08:54 11/30/18 08:54 11/30/18 08:54 11/30/18 08:54 11/30/18 08:54 Laboratory Results 11/30/18 05:00 11/30/18 05:00 11/29/18 11/30/18 12/01/18 05:59 05:59 05:59 Intake Total 0 Output Total 0 Balance 0 - Physical Exam Constitutional: no apparent distress, appears nourished, not in pain Eyes: PERRL Ears, Nose, Mouth, Throat: hearing normal Cardiovascular: regular rate and rhythym Respiratory: no respiratory distress Skin: warm, other (minimal swelling aroung right nipple area) Musculoskeletal: full muscle strength Neurologic: AAOx3 Psychiatric: interacting appropriately ICD10 Worksheet Patient Problems: Problems Problem Status Onset Gastritis Acute Vomiting Acute
--- NOTE | 2018-11-30 16:13 | ASMTDCNOTE ---
Case Management Discharge Discharge Order Complete? Answers: No Patient to Obtain Answers: Independently Medications Transportation Arranged Answers: Bus [employer]ens Transport will Pick (Date 11/30/2018 12:00 AM & Time) Family Notified Answers: No Notes: pt refused Discharge Comments Notes: CM spoke with pt in the room and with hospitalist. Pt to discharge independently and denies need for fci bed. Pt reports he has info on coordinated entry and has been to [facility]. Pt denies interest in information on recovery, but would like information on [facility] as he would like to resume seroquel and other psych medications. CM gave pt days and hours for walk-in appointments at [place]. CM also made follow up appointment for pt with [facility] - details in discharge information. No further CM needs noted at this time. Date Signed: 11/30/2018 04:12 PM Electronically Signed By:Beulah Salazar RN
--- NOTE | 2018-11-30 16:14 | ASMTLACE ---
TRUE Length of stay for Answers: 1 day current admission Acuity / Level of Answers: No Care: Did the patient have an inpatient admission? Comorbidities - select Answers: Other Notes: Hep C all that apply # of Emergency department Answers: 1-2 visits in the last 6 months Social determinants Answers: History of substance abuse (ETOH, street drugs, prescription drugs, etc.) Homelessness (street, halfway) Mental health diagnosis (anxiety, depression, pers onality disorders, etc.) Score: 12 Date Signed: 11/30/2018 04:14 PM Electronically Signed By:Beulah Salazar RN
[2018-11-30 16:35] VITALS: BP 142/89
--- NOTE | 2018-11-30 16:42 | GDS ---
[f rep st] DISCHARGE SUMMARY DISCHARGE DIAGNOSES: 1. Epigastric pain, gastritis. 2. Intravenous drug abuse. 3. Right breast swelling/gynecomastia. 4. Hepatitis C. 5. Non-anion gap metabolic acidosis. 6. Homelessness. HISTORY OF PRESENT ILLNESS: Briefly, the patient is a 33-year-old male with a history of IV drug abu se who presented to the ER with epigastric pain, nausea, and vomiting. His symptoms have resolved. He is eating and drinking well. He also was very concerned that his right breast had swelling and ul trasound confirmed that he has gynecomastia. Recommending that he get a repeat ultrasound in 6 month s to make sure this resolves. This could be secondary from using cannabis. HOSPITAL COURSE PER PROBLEM: 1. Epigastric abdominal pain. This is likely gastritis. H pylori is negative. He has been using m eth recently. This is likely the cause of these symptoms. 2. IV drug abuse, HIV is negative. 3. Right breast swelling, gynecomastia. Should get a repeat ultrasound in 6 months. Also told him if this does not resolve once he stops using cannabis, he needs to get a mammogram. 4. Hepatitis C. He is aware of this. He has a PCP he sees at [facility]. 5. Non-anion gap metabolic acidosis, resolved. 6. Homelessness. He prefers to be this way. DISCHARGE CONDITION: Stable. Blood pressure is 151/89, heart rate of 100, respiratory rate of 16, O 2 sats on room air 96%, temperature 36.9 Celsius. MEDICATIONS AT DISCHARGE: Please see the EMR. DISCHARGE INSTRUCTIONS: 1. Follow up with his doctor at [facility]. He needs to get a repeat ultrasound of the right c hest wall area. 2. Get followup treatment regards to his hepatitis C. 3. I spoke with him that IV drugs are impacting his health. He is aware of this and encouraged him to abstain. Copy requested to: [facility] /[id number]/MODL
--- NOTE | 2018-11-30 16:51 | ASDISCHSUM ---
Discharge Information Plan Status:Homeless/Usp Medically Cleared to Leave:11/30/2018 Discharge Date:11/30/2018 CM D/C Disposition:Streets (Homeless) ADT D/C Disposition: Projected Discharge Date:11/30/2018 Transportation at D/C:Bus Ticket Discharge Delay Reason: Follow-Up Date:11/30/2018 Discharge Slot: Final Diagnosis:vomiting Placement Information Patient Contact Information Contact Name:MITA Relationship:Father Address: City: [facility] Phone: State/Zip Code: Email: Financial Information Financial Class:Medicaid Primary Plan Desc:MEDICAID HEALTH FIRST OFFENSIVE COORDINATOR Primary Plan Number:[id number] Secondary Plan Desc: Secondary Plan Number: Assessment Information LACE LACE Length of stay for Answers: 1 day current admission Acuity / Level of Answers: No Care: Did the patient have an inpatient admission? Comorbidities - select Answers: Other Notes: Hep C all that apply # of Emergency department Answers: 1-2 visits in the last 6 months Social determinants Answers: History of substance abuse (ETOH, street drugs, prescription drugs, etc.) Homelessness (street, skilled nursing) Mental health diagnosis (anxiety, depression, pers onality disorders, etc.) Score: 12 Date Signed: 11/30/2018 04:14 PM Electronically Signed By:Beulah Salazar RN Case Management Discharge Plan Note Case Management Discharge Discharge Order Complete? Answers: No Patient to Obtain Answers: Independently Medications Transportation Arranged Answers: [facility] [employer] ([facility] [employer] Transport will Pick (Date 11/30/2018 12:00 AM & Time) Family Notified Answers: No Notes: pt refused Discharge Comments Notes: CM spoke with pt in the room and with hospitalist. Pt to discharge independently and denies need for skilled nursing bed. Pt reports he has info on coordinated entry and has been to [facility]. Pt denies interest in information on recovery, but would like information on [facility] as he would like to resume seroquel and other psych medications. CM gave pt days and hours for walk-in appointments at [place]. CM also made follow up appointment for pt with [facility] - details in discharge information. No further CM needs noted at this time. Date Signed: 11/30/2018 04:12 PM Electronically Signed By:Beulah Rogers. DENISHA Intervention Information Intervention Type:Health Clinic Date of Service:11/29/2018 02:41 PM Patient Type:Observation Staff Member:DENISHA Dickinson Taylor Hours:0.25 Discipline:Order Runner Severity: Comment:[facility] info provided for PCP follow up appt.
== END 2018-11-30 17:59 | disposition home or self-care (01) ==
LOC: EDUNIT# → F3E 15:11
PROVIDERS: ADMIT Hospitalist; ATTEND Internal Medicine
DX: K29.70 Gastritis, unspecified, without bleeding (principal); F15.10 Other stimulant abuse, uncomplicated; N62 Hypertrophy of breast; F90.1 Attention-deficit hyperactivity disorder, predominantly hyperactive type; B19.20 Unspecified viral hepatitis C without hepatic coma; E87.2 Acidosis; F17.210 Nicotine dependence, cigarettes, uncomplicated; E86.9 Volume depletion, unspecified; Z59.0 Homelessness
CPT/HCPCS: 76641; 96361; 96374; 96375; 96376; 99285; G0378; 86704-90; G0472; J1200; J1885; J2405; J2550